=== PATIENT | female | born 1985 | race Two or more races ===

== ENCOUNTER 2017-10-25 06:25 | Inpatient (IN) | payer MEDICAID ==
[~2017-10-25] VITALS: Ht 157.5 cm; Wt 80.3 kg
[2017-10-25] MEDS ORDERED: LACTATED RINGER'S 1,000 ML IV SCH (06:59)
[2017-10-25] MEDS ORDERED: ceFAZolin 1GM/50ML 50 ML IV ONE (07:05)
[2017-10-25] MEDS ORDERED: TERBUTALINE SULFATE 1 MG/ML 1ML VIAL SC ONE (07:08)
[2017-10-25] MEDS ORDERED: SUCCINYLCHOLINE CHLORIDE 20 MG/ML 10ML VIAL IV ONE (07:25)
[2017-10-25 07:38] LABS: Basophils # (auto) 0 uL; Eosinophils # (auto) 0 uL; Hemoglobin 10.7 g/dL (12.2-16.2); Lymphocytes # (auto) 1.6 uL; Monocytes # (auto) 0.5 uL; Neutrophils # (auto) 5.5 uL; Neutrophils % (auto) 72.5 % (37.0-80.0)
[2017-10-25 07:40] LABS: Basophils % (auto) 0.2 % (0.0-2.0); Hematocrit 32.4 % (36.0-46.0); Lymphocytes % (auto) 20.8 % (10.0-50.0); Mean Corpuscular Hemoglobin 26.7 pg (28.0-32.0); Mean Corpuscular Volume 80.8 fL (80.0-100.0); Monocytes % (auto) 6.5 % (0.0-12.0); Nucleated Red Blood Cells % 0.4 %; Platelet Count (auto) 192 10^3/uL (140-450); Red Blood Cells 4.01 10^6/uL (4.0-5.20); Red Cell Distribution Width 15.5 % (11.8-14.3); White Blood Cell 7.6 10^3/uL (4.4-10.8)
[2017-10-25 07:45] LABS: INR 0.91 (0.9-1.15); Partial Thromboplastin Time 25.1 sec (22.64-33.71); Prothrombin Time 9.9 sec (9.37-12.3)
[2017-10-25 07:52] LABS: Alcohol, Urine < 3.0 mg/dL (0-5); Amphetamine Screen, Urine NEGATIVE (NEGATIVE); Barbiturate Scree,Urine NEGATIVE (NEGATIVE); Benzodiazephine Screen, Urine NEGATIVE (NEGATIVE); Cannabinoid Screen, Urine NEGATIVE (NEGATIVE); Cocaine Screen, Urine NEGATIVE (NEGATIVE); Opiate Scree,Urine NEGATIVE (NEGATIVE); Phencyclidine Screen, Urine NEGATIVE (NEGATIVE)
[2017-10-25 07:53] LABS: Urine Bacteria NONE SEEN /hpf (None Seen); Urine Blood Negative /uL (Negative); Urine WBC 1 /hpf (0 - 5)
[2017-10-25 07:59] LABS: Albumin 2.1 g/dL (3.4-5.0); BUN/Creatinine Ratio 11.8; Bilirubin, Total 0.7 mg/dL (0.2-1.0); Calcium 8.8 mg/dL (8.5-10.1); Potassium 3.7 mmol/L (3.5-5.1); Total Protein 6.5 g/dL (6.4-8.2)
[2017-10-25] MEDS ORDERED: TERBUTALINE SULFATE 1 MG/ML 1ML VIAL SC SCH (08:00)
[2017-10-26 03:09] LABS: RPR Non Reactive (Non Reactive)
[2017-10-26 09:11] LABS: Rubella Antibodies, IgG 1.94 index (Immune >0.99)
== END 2017-10-25 08:30 | disposition short-term general hospital (02) | DRG 566 ==
LOC: LDRP 06:25
PROVIDERS: ADMIT Specialist; ATTEND Specialist
PROC: 0T9B70Z Drainage of Bladder with Drainage Device, Via Natural or Artificial Opening (ICD-10-PCS; principal; 2017-10-25)
DX: O99.413 Diseases of the circulatory system complicating pregnancy, third trimester (principal); Q28.2 Arteriovenous malformation of cerebral vessels; Z3A.36 36 weeks gestation of pregnancy
CPT/HCPCS: 36415; 51702; 59025; 80053; 80307; 81001; 84550; 85025; 85610; 85730; 86592; 86703; 86762; 86850; 86900; 86901; 87340; 96365; 96366; 96372; J0330; J0690

== ENCOUNTER 2024-01-29 05:08 | Emergency (ER) | payer MEDICAID ==
[~2024-01-29] VITALS: Ht 165.1 cm; Wt 178.0 kg
[2024-01-29 07:32] VITALS: BP 122/76; PULSE 64; RESP 20; TEMP 98.5; O2SAT 98
[2024-01-29] MEDS ORDERED: CEPH500C PO (08:39)
== END 2024-01-29 08:38 | disposition home or self-care (01) ==
LOC: ER 05:08
DX: S61.011A Laceration without foreign body of right thumb without damage to nail, initial encounter (principal); W26.8XXA Contact with other sharp object(s), not elsewhere classified, initial encounter; Y93.G1 Activity, food preparation and clean up; Y92.89 Other specified places as the place of occurrence of the external cause; Y99.8 Other external cause status
CPT/HCPCS: 12001; 73130